=== PATIENT | female | born 1990 | race Asian ===

== ENCOUNTER 2019-03-28 14:06 | Inpatient (IN) | payer SELFPAY ==
[2019-03-28 14:13] VITALS: BP 109/72; PULSE 84; RESP 18; TEMP 37.3; O2SAT 98; BMI 24.2
[2019-03-28 14:40] LABS: Add Manual Diff / Slide Review NO; Basophils Absolute Auto 100 /uL (0-100); Basophils Percent Auto 0.6 % (0-2); Eosinophils Absolute Auto 100 /uL (0-450); Eosinophils Percent Auto 0.8 % (2-4); Hematocrit 37.2 % (36-46); Hemoglobin 12.8 g/dL (12.0-16.0); Lymphocytes Absolute Auto 1100 /uL (1100-4500); Lymphocytes Percent Auto 10.8 % (25-40); Mean Corpuscular HGB Conc 34.5 % (30-36); Mean Corpuscular Hemoglobin 32.2 PG (26-34); Mean Corpuscular Volume 93.4 fL (80-100); Monocytes Absolute Auto 800 /uL (0-900); Monocytes Percent Auto 8.1 % (3-14); Neutrophils Absolute Auto 8300 /uL (1500-7000); Neutrophils Percent Auto 79.7 % (50-75); Platelet Count 273 X10^3/uL (150-400); Red Blood Cell Count 3.99 X10^6/uL (4.0-5.2); Red Cell Distribution Width 12.3 % (11.6-14.8); White Blood Cell Count 10.4 X10^3/uL (4.5-11.0)
--- NOTE | 2019-03-28 14:54 | ED_ITS ---
HPI - Abdominal Pain General Chief Complaint: Abdominal Pain Stated Complaint: lot of abdominal pain x2 days Time Seen by Provider: 03/28/19 14:50 Source: patient Mode of arrival: Ambulatory Limitations: no limitations History of Present Illness HPI narrative: 28-year-old female here for evaluation of generalized abdominal pain. States the pain has been going on for the past 24 hours. No urinary symptoms. No diarrhea. Some nausea but no vomiting. No prior abdominal surgeries. Has tried some laxatives and enema for the symptoms without any improvement. States the pain is not any better worse with urination or bowel movements or when the nausea improves. States she was just ?sitting around ?when the symptoms started Related Data Home Medications Medication Instructions Recorded Confirmed No Known Home Medications 03/28/19 03/28/19 Previous Rx's Medication Instructions Recorded Gurmeet-S.therm 1 ea PO DAILY #30 tab 03/30/19 [Bacid] doxycycline hyclate 100 mg PO #25 tab 03/30/19 Allergies Allergy/AdvReac Type Severity Reaction Status Date / Time No Known Drug Allergies Allergy Verified 03/28/19 14:12 Review of Systems Constitutional Constitutional: Denies fever(s) Cardiovascular Cardiovascular: Denies chest pain and Denies dyspnea Respiratory Respiratory: Denies dyspnea Gastrointestinal Gastrointestinal: Reports abdominal pain, Denies change in stool character, Reports nausea and Denies vomiting Genitourinary Genitourinary: Denies dysuria Musculoskeletal Musculoskeletal: Reports back pain, Denies myalgias and Denies arthralgias Integumentary/Breasts Skin/Breast: Denies lesions and Denies rash Neurologic Neurologic: Denies behavioral changes Psychiatric Psychiatric: Denies behavioral changes Hematologic/Lymphatic Hematologic/Lymphatic: Denies easy bleeding and Denies easy bruising [facility] Medical History Patient denies medical problems (Acute) Social History Smoking Status: Current every day smoker Social History household members: family Smoking Status: Current every day smoker Exam Initial Vital Signs Initial Vital Signs: Vital Signs Temperature 99.2 F 03/28/19 14:13 Pulse Rate 84 03/28/19 14:13 Respiratory Rate 18 03/28/19 14:13 Blood Pressure 109/72 03/28/19 14:13 Pulse Oximetry 98 03/28/19 14:13 Const General: cooperative, comfortable and well developed Orientation: alert, awake and oriented x3 HENMT Head: normal to inspection and normocephalic Resp Effort & Inspection: normal respiratory effort Auscultation: clear to auscultation bilaterally Cardio Rate: regular rate Rhythm: regular rhythm GI Inspection: non-distended Palpation: soft, No firm and tender (Diffuse tenderness) Back/Spine/Pelvis Back: No CVA tenderness Skin Lesions: no lesions Rashes: no rashes Neuro General: alert and awake Cognition: normal cognition Speech: speech normal Gait: normal gait Extrem General: normal to inspection and capillary refill normal Psych Appearance: grossly normal and well kempt Course Orders Ordered: Discontinued Medications Acetaminophen (Tylenol) 650 mg PO Q6HR PRN PRN Reason: As Needed for Fever/Mild Pain Last Admin: 03/30/19 13:02 Dose: 650 mg Documented by: Admin: 03/30/19 00:59 Dose: 650 mg Documented by: Admin: 03/29/19 19:33 Dose: 650 mg Documented by: Admin: 03/29/19 11:27 Dose: 650 mg Documented by: Admin: 03/29/19 05:36 Dose: 650 mg Documented by: Admin: 03/28/19 21:22 Dose: 650 mg Documented by: ADONAY Hydrocodone Bitart/Acetaminophen ([place] 5/325) 1 tab PO NOW ONE Stop: 03/28/19 18:31 Last Admin: 03/28/19 18:35 Dose: 1 tab Documented by: MODESTA Doxycycline Hyclate (Vibramycin) 100 mg PO Q12HR [facility] Last Admin: 03/30/19 00:12 Dose: 100 mg Documented by: Admin: 03/29/19 11:27 Dose: 100 mg Documented by: Admin: 03/28/19 23:31 Dose: 100 mg Documented by: ANURAG Doxycycline Hyclate (Vibramycin) 100 mg PO 0800,2000 [facility] Last Admin: 03/30/19 11:12 Dose: 100 mg Documented by: SP Sodium Chloride (Normal Saline 0.9%) 1,000 mls @ 1,000 mls/hr IV BOLUS ONE Stop: 03/28/19 15:53 Last Infusion: 03/28/19 16:10 Dose: 0 mls/hr Documented by: Admin: 03/28/19 15:05 Dose: 1,000 mls/hr Documented by: [facility] Cefotetan Disodium/Dextrose (Cefotan) 2 gm in 50 mls @ 100 mls/hr IV Q12H [facility] Last Infusion: 03/30/19 09:10 Dose: 0 mls/hr Documented by: Admin: 03/30/19 08:24 Dose: 100 mls/hr Documented by: Infusion: 03/29/19 20:35 Dose: 0 mls/hr Documented by: Admin: 03/29/19 20:05 Dose: 100 mls/hr Documented by: Infusion: 03/29/19 08:30 Dose: 0 mls/hr Documented by: Admin: 03/29/19 08:00 Dose: 100 mls/hr Documented by: Infusion: 03/28/19 22:41 Dose: 0 mls/hr Documented by: Admin: 03/28/19 21:50 Dose: 100 mls/hr Documented by: NE Lactated Ringer's (Lactated Ringers) 1,000 mls @ 125 mls/hr IV CONT CHRISTOPHER Last Admin: 03/30/19 00:12 Dose: 125 mls/hr Documented by: Infusion: 03/29/19 23:53 Dose: 125 mls/hr Documented by: Admin: 03/29/19 15:53 Dose: 125 mls/hr Documented by: Infusion: 03/29/19 14:46 Dose: 125 mls/hr Documented by: Infusion: 03/29/19 06:48 Dose: 125 mls/hr Documented by: Admin: 03/29/19 06:46 Dose: 125 mls/hr Documented by: Infusion: 03/29/19 05:18 Dose: 125 mls/hr Documented by: Admin: 03/28/19 21:18 Dose: 125 mls/hr Documented by: ADONAY Ketorolac Tromethamine (Toradol) 30 mg IV NOW ONE Stop: 03/28/19 14:55 Last Admin: 03/28/19 15:04 Dose: 30 mg Documented by: MARC Ketorolac Tromethamine (Toradol) 30 mg IV Q6HR PRN PRN Reason: Pain, Moderate (4-6) Stop: 04/02/19 20:39 Last Admin: 03/30/19 00:12 Dose: 30 mg Documented by: Admin: 03/29/19 18:44 Dose: 30 mg Documented by: Admin: 03/29/19 11:27 Dose: 30 mg Documented by: Admin: 03/29/19 05:31 Dose: 30 mg Documented by: Admin: 03/28/19 21:25 Dose: 30 mg Documented by: ADONAY Lactobacillus Acidophilus (Bacid Caplet) 1 each PO DAILY CHRISTOPHER Last Admin: 03/30/19 09:15 Dose: 1 each Documented by: SP Nicotine (Nicoderm) 14 mg TOP NOW ONE Stop: 03/29/19 18:38 Last Admin: 03/29/19 19:32 Dose: 14 mg Documented by: LOVELY Oxycodone HCl (Percolone) 5 mg PO Q4HR PRN PRN Reason: Pain, Severe (7-10) Last Admin: 03/30/19 05:04 Dose: 5 mg Documented by: Admin: 03/29/19 21:46 Dose: 5 mg Documented by: Admin: 03/29/19 14:51 Dose: 5 mg Documented by: Admin: 03/29/19 10:54 Dose: 5 mg Documented by: Admin: 03/29/19 05:30 Dose: 5 mg Documented by: Admin: 03/28/19 21:23 Dose: 5 mg Documented by: ADONAY Vital Signs Vital signs: Vital Signs - 8 hr 03/28/19 14:13 Temperature 99.2 F Pulse Rate 84 Respiratory Rate 18 Blood Pressure 109/72 Pulse Oximetry 98 MDM - Abdominal Pain Lab Data Attestation: I reviewed the patient's lab results. Result diagrams: 03/30/19 05:30 03/28/19 14:20 Labs: Lab Results 03/28/19 03/28/19 03/28/19 Range/Units 14:20 14:20 14:20 WBC 10.4 (4.5-11.0) X10^3/uL RBC 3.99 L (4.0-5.2) X10^6/uL Hgb 12.8 (12.0-16.0) g/dL Hct 37.2 (36-46) % MCV 93.4 (80-100) fL MCH 32.2 (26-34) PG MCHC 34.5 (30-36) % RDW 12.3 (11.6-14.8) % Plt Count 273 (150-400) X10^3/uL Neut % (Auto) 79.7 H (50-75) % Lymph % (Auto) 10.8 L (25-40) % [place] % (Auto) 8.1 (3-14) % Eos % (Auto) 0.8 L (2-4) % Baso % (Auto) 0.6 (0-2) % Neut # (Auto) 8300 H (2319-5361) /uL Lymph # (Auto) 1100 (1516-0242) /uL [place] # (Auto) 800 (0-900) /uL Eos # (Auto) 100 (0-450) /uL Baso # (Auto) 100 (0-100) /uL Sodium 137 (137-145) mmol/L Potassium 3.6 (3.4-5.1) mmol/L Chloride 100 (98-107) mmol/L Carbon Dioxide 28 (22-32) mmol/L BUN 8 (7-17) mg/dL Creatinine 0.80 (0.52-1.04) mg/dL Estimated GFR > 60.0 (>60) mL/min BUN/Creatinine Ratio 10.0 (6-22) Glucose 106 H (70-100) mg/dL Calcium 9.3 (8.4-10.2) mg/dL Total Bilirubin 1.2 (0.2-1.3) mg/dL AST 26 (14-36) IU/L ALT 18 (9-52) IU/L Alkaline Phosphatase 46 (38-126) U/L Total Protein 7.7 (6.3-8.2) g/dL Albumin 4.2 (3.5-5.0) g/dL Globulin 3.5 (1.7-4.1) g/dL Albumin/Globulin Ratio 1.2 (1.0-2.8) Lipase 51 (23-300) U/L Procalcitonin < 0.05 (<0.5) ng/mL Ur Chlamydia DNA (PCR) N gonorrhoeae DNA (PCR) 03/28/19 Range/Units 14:40 WBC (4.5-11.0) X10^3/uL RBC (4.0-5.2) X10^6/uL Hgb (12.0-16.0) g/dL Hct (36-46) % MCV (80-100) fL MCH (26-34) PG MCHC (30-36) % RDW (11.6-14.8) % Plt Count (150-400) X10^3/uL Neut % (Auto) (50-75) % Lymph % (Auto) (25-40) % [place] % (Auto) (3-14) % Eos % (Auto) (2-4) % Baso % (Auto) (0-2) % Neut # (Auto) (7998-5017) /uL Lymph # (Auto) (6910-3749) /uL [place] # (Auto) (0-900) /uL Eos # (Auto) (0-450) /uL Baso # (Auto) (0-100) /uL Sodium (137-145) mmol/L Potassium (3.4-5.1) mmol/L Chloride (98-107) mmol/L Carbon Dioxide (22-32) mmol/L BUN (7-17) mg/dL Creatinine (0.52-1.04) mg/dL Estimated GFR (>60) mL/min BUN/Creatinine Ratio (6-22) Glucose (70-100) mg/dL Calcium (8.4-10.2) mg/dL Total Bilirubin (0.2-1.3) mg/dL AST (14-36) IU/L ALT (9-52) IU/L Alkaline Phosphatase (38-126) U/L Total Protein (6.3-8.2) g/dL Albumin (3.5-5.0) g/dL Globulin (1.7-4.1) g/dL Albumin/Globulin Ratio (1.0-2.8) Lipase (23-300) U/L Procalcitonin (<0.5) ng/mL Ur Chlamydia DNA (PCR) Not detected N gonorrhoeae DNA (PCR) Not detected Point of care testing: Point of Care Testing Test Results Negative Urine Dip Bedside Urine Glucose Negative Bedside Urine Bilirubin - Negative Bedside Urine Ketone - Negative Urine Specific Iron 1.015 Bedside Urine Occult Blood ++ Bedside Urine pH 6.0 Bedside Urine Protein - Negative Bedside Urine Urobilinogen - Negative Bedside Urine Nitrite - Negative Bedside Urine Leukocytes - Negative Esterase Imaging Data CT scan - abdomen: Radiologist's impression: [address] [address] [address] Scan Report Signed Patient: Lacey Vasquez [facility]#: [id number] : 1990Acct:[id number] Age/Sex: te of Service: 03/28/19 Loc: ED Accession Number: [id number] Procedure: CT abdomen pelvis w con Ordering Provider: Parth Raymundo D.O. PROCEDURE: CT ABDOMEN PELVIS W CON INDICATIONS: Bilateral lower abdomen pain eval for appy TECHNIQUE: After the administration of oral and intravenous contrast, 5 mm thick sections acquired from the diaphragms to the symphysis. 5 mm thick coronal and sagittal reformats were performed. For radiation dose reduction, the following was used: automated exposure control, adjustment of mA and/or kV according to patient size. COMPARISON: None. FINDINGS: Image quality: Diagnostic. ABDOMEN: Lung bases: Lung bases are clear. Heart size is normal. Solid organs: Liver is normal in size and enhancement. Gallbladder is not enlarged or definitely inflamed.. Biliary system is non-dilated. Pancreas enhances normally. Spleen is normal in size and enhancement. No adrenal nodules. Kidneys are normal in size and enhancement, without hydronephrosis. Peritoneum and bowel: The stomach is unremarkable. The small bowel loops are nondilated. The appendix (image 54, series 2) is normal in size. No free fluid or loculated fluid collection is identified. There is no free air. Moderate thickening involving the wall of the distal colon is identified with edema noted within the mesentery. Nodes and vessels: No retroperitoneal or mesenteric adenopathy. Aorta and inf erior vena cava are normal in caliber. Bones: No acute fractures or suspicious osseous lesions are identified. PELVIS: Soft tissues: The wall of the urinary bladder is decompressed and subsequently not adequately evaluated. The uterus is heterogeneous and also not adequately evaluated. There is a complex cystic structure identified within the left adnexa, which measures at least 4.3 x 3.0 x 4.3 cm (image 74, series 2). A small amount of free fluid is seen within the pelvis. There is no definite drainable or loculated fluid collection. No pelvic adenopathy is evident. Bones: No suspicious bony lesions. No acute pelvic fractures are identified. IMPRESSION: 1. Complex fluid collection within the left adnexa probably represents either multiple left ovarian cysts versus possible tubo-ovarian abscess and clinical correlation is recommended. A pelvic ultrasound may provide additional diagnostic information, if indicated. 2. Minimal free fluid within the pelvis probably is reactive. No definite abscess or drainable fluid collection. 3. Normal appendix. 4. Mild thickening of the wall of the distal colon with surrounding mesenteric edema raises the suspicion for either reactive colitis or primary colitis (infectious or inflammatory) and clinical correlation is recommended. Dictated by: Aaron Moe M.D. on 03/28/2019 at 14:34 Approved by: Aaron Moe M.D. on 03/28/2019 at 14:40 US - abdomen: Radiologist's impression: [place] [address] Ultrasound Report Signed Patient: Lacey Vasquez [facility]#: [id number] : 1990Acct:[id number] Age/Sex: te of Service: 03/28/19 Loc: ED Accession Number: [id number] Procedure: US pelvic complete Ordering Provider: Parth Raymundo D.O. PROCEDURE: US PELVIC COMPLETE INDICATIONS: EVALUATE FOR TUBO-OVARIAN ABSCESS PER CT TECHNIQUE: Real-time scanning was performed of the pelvic organs, with image documentation. Additional endovaginal scanning was necessary due to incomplete visualization of the adnexal and endometrial structures by transabdominal scanning. COMPARISON: [facility], CT, CT ABDOMEN PELVIS W CON, 03/28/2019, 15:12. FINDINGS: Transabdominal scanning: Limited scanning through the kidneys shows no hydronephrosis. There is moderate echogenic free fluid within the cul-de-sac. Endovaginal scanning: Uterus: Uterus is normal in size at 6.7 x 3.8 x 5.0 cm. The endometrium measures 5 mm in combined thickness. Within the anterior myometrium there is a 9 mm diameter focus of possible adenomyosis. Possible 20 mm focus of adenomyosis within the posterior endometrium. Ovaries: Right ovary is within normal limits measuring 28 mm. Left ovary is enlarged measuring 16 mm diameter. Multiple cystic foci within the left ovary are present, largest of which measures 20 mm. Dominant region of complex echogenicity within the left ovary measuring 32 mm is present, which demonstrates peripheral flow. IMPRESSION: 1. Complex focus within the left adnexa corresponding to the abnormality seen by CT, compatible with tubo-ovarian abscess versus hemorrhagic cysts versus dermoid. Gynecological surgical consultation recommended. 2. Complex free fluid within the cul-de-sac. 3. Possible adenomyosis within the uterus. Dictated by: Marylou Cordoba M.D. on 03/28/2019 at 18:44 Approved by: Marylou Cordoba M.D. on 03/28/2019 at 18:47 MDM Narrative Medical decision making narrative: Evaluated by dispatcher service or work in the emergency departme nt. Patient felt to the high risk for TOA. Antibiotics started here in the ER. Will admit to lawn mower service. Discharge Plan Departure Patient Disposition: Admitted as Observation Clinical Impression: TOA (tubo-ovarian abscess) Abdominal pain Qualifiers: Abdominal location: unspecified location Qualified Code(s): R10.9 - Unspecified abdominal pain Discharge Date/Time: 03/28/19 20:56 Admit Date/Time: 03/28/19 20:30 Admit Provider: Kimberly Callahan
[2019-03-28 14:58] LABS: Alanine Aminotransferase 18 IU/L (9-52); Albumin 4.2 g/dL (3.5-5.0); Albumin Globulin Ratio 1.2 (1.0-2.8); Alkaline Phosphatase 46 U/L (38-126); Aspartate Aminotransferase 26 IU/L (14-36); Bilirubin Total 1.2 mg/dL (0.2-1.3); Blood Urea Nitrogen 8 mg/dL (7-17); Calcium 9.3 mg/dL (8.4-10.2); Carbon Dioxide 28 mmol/L (22-32); Chloride 100 mmol/L (98-107); Estimated Glomerular Filt Rate > 60.0 mL/min (>60); Globulin 3.5 g/dL (1.7-4.1); Glucose 106 mg/dL (70-100); HEMOLYSIS < 15 (0-50); Lipase 51 U/L (23-300); Potassium 3.6 mmol/L (3.4-5.1); Sodium 137 mmol/L (137-145); Total Protein 7.7 g/dL (6.3-8.2)
[2019-03-28] MEDS: KETOROLAC 60 MG/2 ML VIAL 30 MG IV (15:04)
[2019-03-28] MEDS: SODIUM CHLORIDE 0.9% 1,000 ML 1000 ML IV (15:05)
--- NOTE | 2019-03-28 16:09 | DI.US.S_ITS ---
PROCEDURE: US PELVIC COMPLETE INDICATIONS: EVALUATE FOR TUBO-OVARIAN ABSCESS PER CT TECHNIQUE: Real-time scanning was performed of the pelvic organs, with image documentation. Additional endovaginal scanning was necessary due to incomplete visualization of the adnexal and endometrial structures by transabdominal scanning. COMPARISON: [facility], CT, CT ABDOMEN PELVIS W CON, 03/28/2019, 15:12. FINDINGS: Transabdominal scanning: Limited scanning through the kidneys shows no hydronephrosis. There is moderate echogenic free fluid within the cul-de-sac. Endovaginal scanning: Uterus: Uterus is normal in size at 6.7 x 3.8 x 5.0 cm. The endometrium measures 5 mm in combined thickness. Within the anterior myometrium there is a 9 mm diameter focus of possible adenomyosis. Possible 20 mm focus of adenomyosis within the posterior endometrium. Ovaries: Right ovary is within normal limits measuring 28 mm. Left ovary is enlarged measuring 16 mm diameter. Multiple cystic foci within the left ovary are present, largest of which measures 20 mm. Dominant region of complex echogenicity within the left ovary measuring 32 mm is present, which demonstrates peripheral flow. IMPRESSION: 1. Complex focus within the left adnexa corresponding to the abnormality seen by CT, compatible with tubo-ovarian abscess versus hemorrhagic cysts versus dermoid. Gynecological surgical consultation recommended. 2. Complex free fluid within the cul-de-sac. 3. Possible adenomyosis within the uterus. Dictated by: Marylou Cordoba M.D. on 03/28/2019 at 18:44 Approved by: Marylou Cordoba M.D. on 03/28/2019 at 18:47
[2019-03-28] MEDS: HYDROCODONE/ACET 5/325 TABLET 1 TAB PO (18:35)
--- NOTE | 2019-03-28 20:18 | PC.NURSE ---
Stand by assistance for pelvic with Dr Callahan
[2019-03-28 20:22] LABS: Procalcitonin < 0.05 ng/mL (<0.5)
--- NOTE | 2019-03-28 20:45 | PM.HP.1 ---
History of Present Illness History of Present Illness Date Patient Seen: 03/28/19 Time Patient Seen: 20:15 Chief complaint: lot of abdominal pain x2 days Narrative: Patient is a 28yo G0, presenting to the ED with 2 days of increasing lower abdominal pain, nausea, myalgias, and fevers. She reports that she began having pain two days ago, which was significantly worse with movement and improved slightly with CBD oil. 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 She reports nausea as the pain has worsened, but no vomiting, diarrhea, constipation, or dysuria. 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 She denies any recent uterine instrumentation. Patient History Medical History Patient denies medical problems (Acute) Social History Smoking Status: Current every day smoker Family & Social History Safety & Behavioral: Feels Safe in Current Yes Environment Tobacco & Substance use: Smoking Status Current every day smoker alcohol intake frequency a few times a month Substance Use Type marijuana Meds Home Medications and Allergies Allergies Allergy/AdvReac Type Severity Reaction Status Date / Time No Known Drug Allergies Allergy Verified 03/28/19 14:12 Review of Systems Review of Systems ROS Unobtainable: All systems reviewed & are unremarkable except as noted in HPI and below Constitutional Constitutional: Reports body ache(s), Reports chills, Reports fever(s) and Reports night sweats Cardiovascular Cardiovascular: Reports system reviewed; no additional complaints, except as documented Respiratory Respiratory: Reports system reviewed and no additional complaints, except as documented Gastrointestinal Gastrointestinal: Reports abdominal pain, Denies constipation, Denies cramping, Reports nausea and Denies vomiting Genitourinary Genitourinary: Reports abnormal vaginal bleeding, Denies urinary frequency, Denies urinary hesitancy, Denies urinary urgency, Denies genital pruritis, Denies genital lesions, Reports pelvic pain and Denies flank pain Musculoskeletal Musculoskeletal: Reports myalgias Neurologic Neurologic: Reports system reviewed and no additional complaints, except as documented Exam Vital Signs (past 8 hours): - 03/28/19 14:13 Temperature 99.2 F Pulse Rate 84 Respiratory Rate 18 Blood Pressure 109/72 Pulse Oximetry 98 Oxygen Delivery Method Room Air Const General: cooperative and ill appearing (Patient lying in bed, appears uncomfortable especially with movement. ) Nutritional Appearance: average body habitus Orientation: alert, awake and oriented x3 GI Inspection: non-distended Palpation: guarding (voluntary guarding) and tender External Female Exam: external appearance normal Speculum Exam - Vagina: normal appearance of the vagina and abnormal vaginal discharge malodorous and bloody (watery, bloody discharge with foul odor. Good visualization of cervix difficult due to patient intolerance of exam, mild erythema of cervix apparent.) Speculum Exam - Cervix: cervical tenderness Bimanual Exam- Vagina & Uterus: uterine mobility normal, cervical tenderness and cervical motion tenderness (Significant CMT) Bimanual Exam- Adnexa, other: adnexal tenderness (bilateral tenderness, left >right with voluntary guarding. ) bilaterally Skin General: no rashes or lesions noted Rashes: no rashes Objective Labs Result Diagrams: 03/28/19 14:20 03/28/19 14:20 Labs: Laboratory Results - last 24 hr 03/28/19 03/28/19 03/28/19 14:20 14:20 14:20 WBC 10.4 RBC 3.99 L Hgb 12.8 Hct 37.2 MCV 93.4 MCH 32.2 MCHC 34.5 RDW 12.3 Plt Count 273 Neut % (Auto) 79.7 H Lymph % (Auto) 10.8 L [place] % (Auto) 8.1 Eos % (Auto) 0.8 L Baso % (Auto) 0.6 Neut # (Auto) 8300 H Lymph # (Auto) 1100 [place] # (Auto) 800 Eos # (Auto) 100 Baso # (Auto) 100 Sodium 137 Potassium 3.6 Chloride 100 Carbon Dioxide 28 BUN 8 Creatinine 0.80 Estimated GFR > 60.0 BUN/Creatinine Ratio 10.0 Glucose 106 H Calcium 9.3 Total Bilirubin 1.2 AST 26 ALT 18 Alkaline Phosphatase 46 Total Protein 7.7 Albumin 4.2 Globulin 3.5 Albumin/Globulin Ratio 1.2 Lipase 51 Procalcitonin < 0.05 Assessment & Plan Assessment & Plan narrative: This patient presents with a likely tuboovarian abscess. On TVUS, she has a complex structure in the left adnexa c/w a tubular fluid filled structure adjacent to the left ovary. On exam, she has foul smelling discharge, significant CMT, and LLQ tenderness. Her HPI is also consistent with this diagnosis. Given the size of the structure and that she is otherwise stable, she does not require surgical management. She will be admitted for IV abx as below, anticipating 24-48 hrs of inpatient management. - Cefotetan 2g IV q12hrs - doxycycline 100mg PO q12hrs - regular diet - activity ad reginald - tylenol, toradol, oxycodone PRN - SCDs while sedentary - CBC, HIV in AM Time Spent With Patient Time with patient: 25 - 35 minutes
[2019-03-28 20:46] VITALS: BMI 24.2
[2019-03-28 20:51] LABS: Urine N gonorrhoeae NOT DETECTED
[2019-03-28 20:57] VITALS: BP 93/82; PULSE 64; RESP 17; O2SAT 98
[2019-03-28 21:08] LABS: Urine Chlamydia NOT DETECTED
[2019-03-28 21:11] VITALS: BP 98/58; PULSE 65; RESP 16; O2SAT 99
[2019-03-28] MEDS: LACTATED RINGERS 1,000 ML 125 ML IV (21:18)
[2019-03-28 21:20] VITALS: TEMP 36.4
[2019-03-28] MEDS: ACETAMINOPHEN 325 MG TABLET 650 MG PO (21:22)
[2019-03-28] MEDS: OXYCODONE IR 5 MG TABLET PO (21:23)
[2019-03-28] MEDS: KETOROLAC 30 MG/ML VIAL IV (21:25)
[2019-03-28] MEDS: CEFOTETAN 2 GM/50 ML PIGGYBACK IV (21:50)
[2019-03-28] MEDS: DOXYCYCLINE HYCLATE 100 MG TABLET PO (23:31)
[2019-03-28 23:35] VITALS: BP 96/59; PULSE 75; RESP 16; TEMP 36.3; O2SAT 100
[2019-03-29 05:21] VITALS: BP 114/60; PULSE 69; RESP 16; TEMP 36.7; O2SAT 99
[2019-03-29] MEDS: OXYCODONE IR 5 MG TABLET PO ×4 (05:30→21:46)
[2019-03-29] MEDS: KETOROLAC 30 MG/ML VIAL IV ×3 (05:31→18:44)
[2019-03-29] MEDS: ACETAMINOPHEN 325 MG TABLET 650 MG PO ×3 (05:36→19:33)
[2019-03-29] MEDS: LACTATED RINGERS 1,000 ML 125 ML IV ×2 (06:46→15:53)
[2019-03-29 07:15] LABS: Add Manual Diff / Slide Review NO; Basophils Absolute Auto 0 /uL (0-100); Basophils Percent Auto 0.4 % (0-2); Eosinophils Absolute Auto 200 /uL (0-450); Eosinophils Percent Auto 2.7 % (2-4); Hematocrit 34.4 % (36-46); Hemoglobin 11.4 g/dL (12.0-16.0); Lymphocytes Absolute Auto 1200 /uL (1100-4500); Mean Corpuscular HGB Conc 33.1 % (30-36); Mean Corpuscular Hemoglobin 31.5 PG (26-34); Mean Corpuscular Volume 94.9 fL (80-100); Monocytes Absolute Auto 800 /uL (0-900); Monocytes Percent Auto 13.7 % (3-14); Neutrophils Absolute Auto 3700 /uL (1500-7000); Neutrophils Percent Auto 63.2 % (50-75); Platelet Count 253 X10^3/uL (150-400); Red Blood Cell Count 3.63 X10^6/uL (4.0-5.2); Red Cell Distribution Width 12.3 % (11.6-14.8); White Blood Cell Count 5.9 X10^3/uL (4.5-11.0)
[2019-03-29] MEDS: CEFOTETAN 2 GM/50 ML PIGGYBACK IV ×2 (08:00→20:05)
[2019-03-29 09:00] VITALS: BP 100/54; PULSE 62; RESP 16; TEMP 36.2; O2SAT 100
--- NOTE | 2019-03-29 10:32 | PM.PN.1 ---
Subjective Subjective Date Patient Seen: 03/29/19 Time Patient Seen: 10:32 Interval history: Patient is a 28yo G0 a/w suspected TOA, on cefotetan and PO doxycycline. The patient reports some chills overnight last night (hot flashes,) and that her pain improves with medication but is still present. She reports 1x loose stool overnight, but is tolerating a regular diet well and is eager to ambulate this AM. Exam Vital Signs (past 8 hours): - 03/29/19 05:21 03/29/19 09:00 Temperature 98.0 F 97.2 F L Pulse Rate 69 62 Respiratory Rate 16 16 Blood Pressure 114/60 100/54 L Pulse Oximetry 99 100 Oxygen Delivery Method Room Air Oxygen Flow Rate 0 Narrative Exam Narrative: Patient resting in bed, appears more comfortable than at admission. Resp Effort & Inspection: normal respiratory effort Auscultation: clear to auscultation bilaterally Cardio Rhythm: regular rhythm and abnormal rhythm GI Inspection: non-distended Palpation: soft, No guarding and tender (mildly diffusely tender, much improved since admission.) Objective Labs Result Diagrams: 03/29/19 07:01 03/28/19 14:20 Labs: Laboratory Results - last 24 hr 03/28/19 03/28/19 03/28/19 14:20 14:20 14:20 WBC 10.4 RBC 3.99 L Hgb 12.8 Hct 37.2 MCV 93.4 MCH 32.2 MCHC 34.5 RDW 12.3 Plt Count 273 Neut % (Auto) 79.7 H Lymph % (Auto) 10.8 L [place] % (Auto) 8.1 Eos % (Auto) 0.8 L Baso % (Auto) 0.6 Neut # (Auto) 8300 H Lymph # (Auto) 1100 [place] # (Auto) 800 Eos # (Auto) 100 Baso # (Auto) 100 Sodium 137 Potassium 3.6 Chloride 100 Carbon Dioxide 28 BUN 8 Creatinine 0.80 Estimated GFR > 60.0 BUN/Creatinine Ratio 10.0 Glucose 106 H Calcium 9.3 Total Bilirubin 1.2 AST 26 ALT 18 Alkaline Phosphatase 46 Total Protein 7.7 Albumin 4.2 Globulin 3.5 Albumin/Globulin Ratio 1.2 Lipase 51 Procalcitonin < 0.05 Ur Chlamydia DNA (PCR) N gonorrhoeae DNA (PCR) 03/28/19 03/29/19 14:40 07:01 WBC 5.9 RBC 3.63 L Hgb 11.4 L Hct 34.4 L MCV 94.9 MCH 31.5 MCHC 33.1 RDW 12.3 Plt Count 253 Neut % (Auto) 63.2 Lymph % (Auto) 20.0 L [place] % (Auto) 13.7 Eos % (Auto) 2.7 Baso % (Auto) 0.4 Neut # (Auto) 3700 Lymph # (Auto) 1200 [place] # (Auto) 800 Eos # (Auto) 200 Baso # (Auto) 0 Sodium Potassium Chloride Carbon Dioxide BUN Creatinine Estimated GFR BUN/Creatinine Ratio Glucose Calcium Total Bilirubin AST ALT Alkaline Phosphatase Total Protein Albumin Globulin Albumin/Globulin Ratio Lipase Procalcitonin Ur Chlamydia DNA (PCR) Not detected N gonorrhoeae DNA (PCR) Not detected Assessment & Plan Assessment & Plan narrative: This patient is a/w a suspected TOA. She has been on abx for ~12 hours and appears somewhat improved, though she continues to have pain. The patient has a watery stool in the setting of having attempted home therapy for constipation, as she initially attributed her pain to this. - CBC in AM, continue to monitor hgb. No clinical signs of acute bleeding. - Ambulation encouraged, SCDs while sedentary - f/u cultures - HIV pending - Regular diet - continue cefotetan 2g q12 IV and 100mg doxycycline PO q12 - pain medication PRN, patient encouraged to request as needed Time Spent With Patient Time with patient: less than 15 minutes Quality VTE Deep Vein Thrombosis/Pulmonary Embolism Present on Admission: No
--- NOTE | 2019-03-29 10:34 | CM.DANOTE ---
DCP: Case received, EMR reviewed and met with patient. Introduced self and role. Was able to get minimal information from patient regarding her baseline history, as patient was limited on her conversation. DCP assessment/template, completed with information currently available. Patient is a 28 year old female who admitted yesterday evening to the care of the hospitalist team. PCP: None Payer: confirmed: [employer]/Medicaid. Patient came to the hospital via private vehicle secondary to increased abdominal pain for the last couple of days. She currently holds diagnosis of Tubovarian Abscess, and is here for IV antibiotics. Met with patient briefly in her room. She resides in [place] with her brother, and is independent. Asked her if she had a primary provider, and she stated that she does not. Asked her if she was wanting information regarding getting a primary provider in her area, and she stated, she was not interested at this time. 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 P: DCP to continue to follow and be available for any resources that patient may need. According to provider notes, it is anticipated that she will be here between 24-48 hours for IV antibiotics, before going home. Paula Barrera RN/Continuous Yarn Dyeing Machine Operator
[2019-03-29] MEDS: DOXYCYCLINE HYCLATE 100 MG TABLET PO (11:27)
--- NOTE | 2019-03-29 11:55 | PC.NURSE ---
Addendum entered by Rae Brooks R.N. 03/29/19 14:28: Patient ambulated to restroom, loose BM noted, 125ml of urine out. Patient is stooped when transferring, guarding abdomen. Patient denies chest pain, SOB, n/v, dizziness. Patient is in pain, level is at a 7 without movement, grimacing, holding abdomen, describing pain as twisting in her gut. Oxy 5 mg to be administered. Original Note: Patient ambulating in room. Grimacing and holding abdomen. Reports pain at a 7.5 given further medication and warm blankets. Patient returned to bed, IV still infusing LR at 125ml/hr. Site CDI, patient denies further needs at this time.
[2019-03-29 12:00] VITALS: BP 103/60; PULSE 63; RESP 15; O2SAT 100
[2019-03-29 15:30] VITALS: BP 114/65; PULSE 51; RESP 20; TEMP 37.2; O2SAT 100
[2019-03-29] MEDS: NICOTINE 14 PATCH 14 MG TOP (19:32)
[2019-03-29 19:45] VITALS: BP 123/70; PULSE 69; RESP 16; TEMP 36.7; O2SAT 100
[2019-03-30] VITALS: BP 123/80; PULSE 67; RESP 16; TEMP 36.3; O2SAT 100
[2019-03-30] MEDS: DOXYCYCLINE HYCLATE 100 MG TABLET PO ×2 (00:12→11:12)
[2019-03-30] MEDS: LACTATED RINGERS 1,000 ML 125 ML IV (00:12)
[2019-03-30] MEDS: KETOROLAC 30 MG/ML VIAL IV (00:12)
[2019-03-30] MEDS: ACETAMINOPHEN 325 MG TABLET 650 MG PO ×2 (00:59→13:02)
[2019-03-30] MEDS: OXYCODONE IR 5 MG TABLET PO (05:04)
[2019-03-30 05:10] VITALS: BP 126/60; PULSE 56; RESP 16; TEMP 36.2; O2SAT 100
[2019-03-30 05:44] LABS: Add Manual Diff / Slide Review NO; Basophils Absolute Auto 0 /uL (0-100); Basophils Percent Auto 0.6 % (0-2); Eosinophils Absolute Auto 300 /uL (0-450); Eosinophils Percent Auto 4.2 % (2-4); Hematocrit 34.9 % (36-46); Hemoglobin 11.9 g/dL (12.0-16.0); Lymphocytes Absolute Auto 1900 /uL (1100-4500); Lymphocytes Percent Auto 31.3 % (25-40); Mean Corpuscular HGB Conc 34.2 % (30-36); Mean Corpuscular Hemoglobin 32.2 PG (26-34); Mean Corpuscular Volume 94.1 fL (80-100); Monocytes Absolute Auto 700 /uL (0-900); Monocytes Percent Auto 11.4 % (3-14); Neutrophils Absolute Auto 3200 /uL (1500-7000); Neutrophils Percent Auto 52.5 % (50-75); Platelet Count 291 X10^3/uL (150-400); Red Blood Cell Count 3.71 X10^6/uL (4.0-5.2); Red Cell Distribution Width 12.2 % (11.6-14.8); White Blood Cell Count 6.1 X10^3/uL (4.5-11.0)
[2019-03-30] MEDS: CEFOTETAN 2 GM/50 ML PIGGYBACK IV (08:24)
[2019-03-30 09:00] VITALS: BP 125/70; PULSE 92; RESP 14; TEMP 36.9; O2SAT 96
[2019-03-30] MEDS: LACTOBACILLUS ACIDOPHILUS TABLET 1 EACH PO (09:15)
--- NOTE | 2019-03-30 09:16 | PC.NURSE ---
Addendum entered by Rae Brooks R.N. 03/30/19 14:02: Patient educated on medications, follow up and personal care. Patient left via wheelchair with friend. Original Note: Patient resting in bed. Ambulated to restroom earlier for BM. Grimaced during movement but did not request pain medication at that time (0745). Patient currently eating breakfast, watching the television with no complaints. Antibiotic infusing, morning medication given. Patient lungs clear bilaterally, IV site CDI. Bowel tones active. Patient denies further needs at this time.
--- NOTE | 2019-03-30 12:27 | P.PN_ITS ---
Subjective Subjective Date Patient Seen: 03/30/19 Time Patient Seen: 12:01 Interval history: Patient is a 28yo G0 a/w suspected TOA, on cefotetan and PO doxycycline. The patient reports feeling improved pain since yesterday, ambulating more easily. Reports urinating well, passing flatus, tolerating PO diet, no further fevers/chills, reports decreased frequency of liquid stools. Exam Vital Signs (past 8 hours): - 03/30/19 05:10 03/30/19 09:00 Temperature 97.2 F L 98.4 F Pulse Rate 56 L 92 H Respiratory Rate 16 14 Blood Pressure 126/60 125/70 Pulse Oximetry 100 96 Oxygen Delivery Method Room Air Oxygen Flow Rate 0 Const General: cooperative, healthy appearing and comfortable Orientation: alert, awake and oriented x3 Other: Avidly watching television. Resp Effort & Inspection: normal respiratory effort Auscultation: clear to auscultation bilaterally Cardio Rate: regular rate Rhythm: regular rhythm GI Inspection: normal to inspection and non-distended Palpation: soft, No guarding and tender (mildy tender over LLQ) Skin General: no rashes or lesions noted Extrem General: normal to inspection Right lower extremity: normal to inspection Left lower extremity: normal to inspection Objective Labs Result Diagrams: 03/30/19 05:30 03/28/19 14:20 Labs: Laboratory Results - last 24 hr 03/30/19 05:30 WBC 6.1 RBC 3.71 L Hgb 11.9 L Hct 34.9 L MCV 94.1 MCH 32.2 MCHC 34.2 RDW 12.2 Plt Count 291 Neut % (Auto) 52.5 Lymph % (Auto) 31.3 [place] % (Auto) 11.4 Eos % (Auto) 4.2 H Baso % (Auto) 0.6 Neut # (Auto) 3200 Lymph # (Auto) 1900 [place] # (Auto) 700 Eos # (Auto) 300 Baso # (Auto) 0 Assessment & Plan Assessment and plan (1) TOA (tubo-ovarian abscess): Current visit: Yes Status: Acute Assessment & Plan narrative: Patient HD#2 s/p admission with suspected TOA, on IV cefotetan and PO doxycycline with good clinical improvement. Cultures pending, and patient for discharge home after 36 hrs IV abx, to continue PO doxycycline for total of 14 days. Patient counselled on expected recovery course and precautions for return. F/U in clinic in 1 week. Time Spent With Patient Time with patient: less than 15 minutes Quality VTE Deep Vein Thrombosis/Pulmonary Embolism Present on Admission: No
[2019-03-30 12:30] VITALS: BP 115/72; PULSE 89
--- NOTE | 2019-03-30 13:26 | PM.DS.1 ---
History of Present Illness History of Present Illness Chief complaint: lot of abdominal pain x2 days Narrative: Patient is a 28yo G0, presenting to the ED with 2 days of increasing lower abdominal pain, nausea, myalgias, and fevers. She reports that she began having pain two days ago, which was significantly worse with movement and improved slightly with CBD oil. 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 She reports nausea as the pain has worsened, but no vomiting, diarrhea, constipation, or dysuria. 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 She denies any recent uterine instrumentation. Discharge Providers Provider Date of admission: 03/28/19 20:30 Discharge Date: 03/30/19 Discharge provider: Kimberly Callahan MD Summary Hospital Course Discharge Diagnosis: TOA Hospital Course: Patient a 28yo G0 a/w suspected TOA, clinically improved on IV cefotetan and PO doxycycline and stable for discharge today with PO abx for total of 12 days and outpatient follow up. Precautions for return discussed with patient. Patient reports ongoing liquid stools, beginning concurrent with IV antibiotic administration and following extensive at home bowel regimen. Status at Discharge Cognitive/behavioral status at discharge: oriented Functional status at discharge: independent ambulation Overall status at discharge: patient is progressing back to baseline Time Spent with Patient Time spent: Greater than 30 minutes Time spent discussing smoking cessation with patient: 3 to 10 minutes Exam Vital Signs (past 8 hours): - 03/30/19 09:00 03/30/19 12:30 Temperature 98.4 F Pulse Rate 92 H 89 Respiratory Rate 14 Blood Pressure 125/70 115/72 Pulse Oximetry 96 Oxygen Delivery Method Room Air Oxygen Flow Rate 0 Const General: cooperative and comfortable Orientation: alert, awake and oriented x3 Resp Effort & Inspection: normal respiratory effort Auscultation: clear to auscultation bilaterally Cardio Rate: regular rate Rhythm: regular rhythm GI Palpation: soft and tender Objective Labs Result Diagrams: 03/30/19 05:30 03/28/19 14:20 Labs: Laboratory Results - last 24 hr 03/30/19 05:30 WBC 6.1 RBC 3.71 L Hgb 11.9 L Hct 34.9 L MCV 94.1 MCH 32.2 MCHC 34.2 RDW 12.2 Plt Count 291 Neut % (Auto) 52.5 Lymph % (Auto) 31.3 [place] % (Auto) 11.4 Eos % (Auto) 4.2 H Baso % (Auto) 0.6 Neut # (Auto) 3200 Lymph # (Auto) 1900 [place] # (Auto) 700 Eos # (Auto) 300 Baso # (Auto) 0 Discharge Plan Discharge Plan Patient Disposition: Home Discharge Med Rec/Prescriptions Prescriptions: New doxycycline hyclate 100 mg Tablet 100 mg PO 0800,1999 Qty: 25 RF: 0 Bacid 1 billion cell- 250 mg Tablet 1 ea PO DAILY Qty: 30 RF: 0 No Action No Known Home Medications RF: 0 Follow up/Referrals: Kimberly Callahan MD [Physician] - 1 Week (F/U for admission for TOA) Provider Discharge Instructions Diet: Regular Activity: Ad reginald- nothing in the vagina for 2 weeks Other treatments: Take motrin 600mg every 6 hours as needed for pain relief. Can also take tylenol 325mg every 6 hours as needed. Quality VTE Deep Vein Thrombosis/Pulmonary Embolism Present on Admission: No
[2019-03-31 17:09] LABS: HIV 1 & 2 Ab/Ag 4th Gen Combo NEGATIVE (NEGATIVE)
[2019-04-02 10:29] LABS: C.trachomatis RNA NOT DETECTED; N.gonorrhoeae RNA NOT DETECTED
== END 2019-03-30 01:50 | disposition home or self-care (01) | DRG 759 ==
LOC: ED 20:17 → AC 20:32
PROVIDERS: Admitting Provider Obstetrics & Gynecology; Emergency Provider Emergency Medicine; Visit Provider Obstetrics & Gynecology
DX: N70.03 Acute salpingitis and oophoritis (principal)
CPT/HCPCS: 36415; 74177; 76856; 80053; 81003; 81025; 83690; 84145; 85025; 87070; 87077; 87147; 87205; 87389; 87491; 87591; 96374; 99222; 99231; 99238; 99283; 99285; J1885; Q9967

== ENCOUNTER → 2022-06-19 10:53 | Outpatient (CLI) | payer OTHER, MEDICAID, SELFPAY ==
--- NOTE | 2022-06-19 | DI.RAD.S_ITS ---
PROCEDURE: XR CERVICAL SPINE 2V OR 3V INDICATIONS: Sprain of ligaments of thoracic spine, initial encounter TECHNIQUE: 3 view(s) of the cervical spine were acquired. COMPARISON: None. FINDINGS: Bones: No fractures or dislocations to the T1 level. The lateral masses of C1 appear intact on the odontoid view. No suspicious bony lesions. Soft tissues: No prevertebral soft tissue swelling. IMPRESSION: Normal cervical spine radiographs Approved by: Pablo Munguia M.D. on 06/19/2022 at 12:36
--- NOTE | 2022-06-19 | DI.RAD.S_ITS ---
PROCEDURE: XR THORACIC SPINE 2V INDICATIONS: Sprain of ligaments of thoracic spine, initial encounter TECHNIQUE: 3 views of the thoracic spine were acquired. COMPARISON: None. FINDINGS: Bones: No fractures or dislocations. No suspicious bony lesions. 12 pairs of ribs are noted, and appear intact where visualized. Soft tissues: No paravertebral stripe thickening. IMPRESSION: Normal lumbar spine radiographs Approved by: Pablo Munguia M.D. on 06/19/2022 at 12:34
--- NOTE | 2022-06-19 | DI.RAD.S_ITS ---
PROCEDURE: XR LUMBAR SPINE 2-3V INDICATIONS: Sprain of ligaments of thoracic spine, initial encounter. TECHNIQUE: 3 views of the lumbar spine were acquired. COMPARISON: None. FINDINGS: Bones: 5 [id number] vertebrae are present. There is normal bony alignment. No vertebral body compression fractures. No suspicious bony lesions. Soft tissues: Overlying bowel gas pattern is normal. No suspicious soft tissue calcifications. IMPRESSION: Normal lumbar spine radiographs Approved by: Pablo Munguia M.D. on 06/19/2022 at 12:35
== END ==
PROVIDERS: Referring Provider Chiropractor; Visit Provider Chiropractor
DX: S13.4XXA Sprain of ligaments of cervical spine, initial encounter (principal); S23.3XXA Sprain of ligaments of thoracic spine, initial encounter; S33.5XXA Sprain of ligaments of lumbar spine, initial encounter; X58.XXXA Exposure to other specified factors, initial encounter
CPT/HCPCS: 72040; 72070; 72100